=== PATIENT | female | born 1950 | race Caucasian/White ===

== ENCOUNTER 2016-08-25 10:38 | Emergency (ER) | payer MEDICARE, BC ==
[~2016-08-25] VITALS: Ht 152.4 cm; Wt 45.5 kg
[~2016-08-25 10:38] MED LIST: DIAZ10TA PO; FLUO20CA4 PO; LEVO88TA2 PO; OMEP20TA PO; SIMV20TA PO
[2016-08-25 10:40] VITALS: BP 132/66; PULSE 98; RESP 20; TEMP 99; O2SAT 97
[2016-08-25] MEDS ORDERED: SODIUM CHLOR 0.9% 1000 ML INJ 1,000 ML IV SCH (11:26)
[2016-08-25] MEDS ORDERED: LORazepam 2 MG/ML VIAL IV PUSH ONE (11:30)
--- NOTE | 2016-08-25 11:40 | PD ---
HPI Chief Complaint: General Weakness Time Seen by Provider: 11:34 Travel History International Travel<30 days: No Contact w/Intl Traveler<30days: No Traveled to known affect area: No History of Present Illness HPI 65-year-old female that presents to the ED for evaluation of multiple complaints. Patient apparently main complaint is that she had her medication changed recently by a new doctor from to Prozac and she states that she doesn't like this medication as it seems like is not working for her. Per patient she also had her medication changed from Valium to Xanax and she also states that this is not working for her. She attributes most of her symptoms to this and she appears to be more anxious and depressed. Per patient she cannot get out of the house because she doesn't have the strength to get out. Per patient feels very weak and anxious. She states that she's been having some chest pain and epigastric pain. She is also stating that she has body aches and feels like she might have pneumonia. She also would like us to do an ultrasound of her ovarian cyst as she missed her last appointment to get this done. She denies any symptoms from the ovarian cyst. Is any vaginal bleeding or discharge. Per patient she is urinating a lot. She does have a known history of thyroid disease and last time she was here in March she was found to be in severe hypothyroidism. Patient was admitted for that. She states that her pain is 8 out of 10 mg epigastric area. Per patient the pain in the abdomen moves to the back. She denies any falls or injuries. No fevers chills or sweats. The patient gets tremors whenever she gets anxious and she had one of this tremors when I was in the room. She was completely awake and answering questions of properly during the whole time. PFSH Past Medical History Anxiety: Yes Depression: Yes Cancer: No Cardiovascular Problems: No High Cholesterol: Yes COPD: Yes Gastrointestinal Disorders: Yes GERD: Yes (GERD) Genitourinary: No Musculoskeletal: No Neurologic: No Psychiatric: Yes (anger, anxiaty ) Reproductive: No Respiratory: Yes Thyroid Disease: Yes (hyperthyroidism) Past Surgical History Abdominal Surgery: Yes (GALL BLADDER) Other Surgery: Yes Social History Alcohol Use: No Tobacco Use: No (2 cigeretts a day ) Substance Use: No Allergies-Medications (Allergen,Severity, Reaction): Coded Allergies: Codeine (Verified Allergy, Severe, 08/25/16) Penicillin (Verified Allergy, Severe, 08/25/16) Reported Meds & Prescriptions Reported Meds & Active Scripts Active Buspirone (Buspirone HCl) 15 Mg Tab 15 Mg PO BID 30 Days Diazepam 10 Mg Tab 10 Mg PO BID 30 Days Levothyroxine (Levothyroxine Sodium) 88 Mcg Tab 88 Mcg PO DAILY Reported Fluoxetine (Fluoxetine HCl) 20 Mg Cap 20 Mg PO DAILY Simvastatin 20 Mg Tab 20 Mg PO DAILY Omeprazole 20 Mg Tab 20 Mg PO BID Review of Systems Except as stated in HPI: all other systems reviewed are Neg Physical Exam Narrative GENERAL: SKIN: Warm and dry. HEAD: Atraumatic. Normocephalic. EYES: Pupils equal and round 4 mm reactive to light and accommodation. No scleral icterus. No injection or drainage. ENT: No nasal bleeding or discharge. Mucous membranes pink and moist. Tongue is midline. No uvula deviation. NECK: Trachea midline. No JVD. CARDIOVASCULAR: Regular rate and rhythm. No murmurs, S3, S4. RESPIRATORY: No accessory muscle use. Clear to auscultation. Breath sounds equal bilaterally. GASTROINTESTINAL: Abdomen soft, non-tender, nondistended. Hepatic and splenic margins not palpable. MUSCULOSKELETAL: Extremities without clubbing, cyanosis, or edema. No obvious deformities. Full range of motion of the upper and lower extremities bilaterally. 2+ pulses bilaterally. No cervical, thoracic, lumbar spine tenderness to palpation. NEUROLOGICAL: Awake and alert. No obvious cranial nerve deficits. Motor grossly within normal limits. Five out of 5 muscle strength in the arms and legs. Normal speech. PSYCHIATRIC: Anxious mood and affect; insight and judgment normal. Data Data Last Documented VS Vital Signs Date Time Temp Pulse Resp B/P Pulse Ox O2 Delivery O2 Flow Rate FiO2 08/25/16 11:51 74 14 134/76 97 08/25/16 10:56 Room Air 08/25/16 10:40 99.0 Orders Electrocardiogram (08/25/16 ) Complete Blood Count With Diff (08/25/16 11:24) Comprehensive Metabolic Panel (08/25/16 11:24) Creatine Kinase (Cpk) (08/25/16 11:24) Ckmb (Isoenzyme) Profile (08/25/16 11:24) Troponin I (08/25/16 11:24) Prothrombin Time / Inr (Pt) (08/25/16 11:24) Act Partial Throm Time (Ptt) (08/25/16 11:24) Blood Culture (08/25/16 11:24) Lipase (08/25/16 11:24) Urinalysis - C+S If Indicated (08/25/16 11:24) Magnesium (Mg) (08/25/16 11:24) Thyroid Stimulating Hormone (08/25/16 11:24) Chest, Single Ap (08/25/16 11:24) Ct Abd/Pel W Iv Contrast(Rout) (08/25/16 11:24) Iv Access Insert/Monitor (08/25/16 11:24) Ecg Monitoring (08/25/16 11:24) Oximetry (08/25/16 11:24) Lorazepam Inj (Ativan Inj) (08/25/16 11:30) Lactic Acid (08/25/16 11:24) Free T3 (08/25/16 11:24) Thyroxine (T4) (08/25/16 11:24) Sodium Chlor 0.9% 1000 Ml Inj (Ns 1000 M (08/25/16 11:26) Free Thyroxine (T4) (08/25/16 11:28) Potassium Chloride (Kcl) (08/25/16 13:00) Iohexol 350 Inj (Omnipaque 350 Inj) (08/25/16 13:23) Labs Laboratory Tests Test 08/25/16 11:30 White Blood Count 6.4 TH/MM3 Red Blood Count 5.32 MIL/MM3 Hemoglobin 14.6 GM/DL Hematocrit 44.0 % Mean Corpuscular Volume 82.7 FL Mean Corpuscular Hemoglobin 27.5 PG Mean Corpuscular Hemoglobin 33.2 % Concent Red Cell Distribution Width 14.1 % Platelet Count 178 TH/MM3 Mean Platelet Volume 8.7 FL Neutrophils (%) (Auto) 65.0 % Lymphocytes (%) (Auto) 26.4 % Monocytes (%) (Auto) 7.7 % Eosinophils (%) (Auto) 0.7 % Basophils (%) (Auto) 0.2 % Neutrophils # (Auto) 4.1 TH/MM3 Lymphocytes # (Auto) 1.7 TH/MM3 Monocytes # (Auto) 0.5 TH/MM3 Eosinophils # (Auto) 0.0 TH/MM3 Basophils # (Auto) 0.0 TH/MM3 CBC Comment DIFF FINAL Differential Comment Urine Color LIGHT-YELLOW Urine Turbidity CLEAR Urine pH 6.5 Urine Specific [place] 1.011 Urine Protein NEG mg/dL Urine Glucose (UA) NEG mg/dL Urine Ketones NEG mg/dL Urine Occult Blood NEG Urine Nitrite NEG Urine Bilirubin NEG Urine Urobilinogen LESS THAN 2.0 MG/DL Urine Leukocyte Esterase NEG Urine WBC LESS THAN 1 /hpf Urine Squamous Epithelial <1 /hpf Cells Microscopic Urinalysis Comment CULT NOT INDICATED Sodium Level 140 MEQ/L Potassium Level 3.2 MEQ/L Chloride Level 105 MEQ/L Carbon Dioxide Level 25.1 MEQ/L Anion Gap 10 MEQ/L Blood Urea Nitrogen 18 MG/DL Creatinine 0.67 MG/DL Estimat Glomerular Filtration 88 ML/MIN Rate Random Glucose 114 MG/DL Lactic Acid Level 1.8 mmol/L Calcium Level 9.4 MG/DL Magnesium Level 2.1 MG/DL Total Bilirubin 0.4 MG/DL Aspartate Amino Transf 16 U/L (AST/SGOT) Alanine Aminotransferase 34 U/L (ALT/SGPT) Alkaline Phosphatase 84 U/L Total Creatine Kinase 27 U/L Troponin I LESS THAN 0.02 NG/ML Total Protein 6.9 GM/DL Albumin 3.8 GM/DL Lipase 183 U/L Free Thyroxine 1.07 NG/DL Thyroxine (T4) 10.4 MCG/DL Free Triiodothyronine (T3) 1.96 PG/ML pg/dL Thyroid Stimulating Hormone 0.219 uIU/ML 3rd Gen [facility] Medical Decision Making Medical Screen Exam Complete: Yes Emergency Medical Condition: Yes Medical Record Reviewed: Yes Interpretation(s) CBC & BMP Diagram 08/25/16 11:30 LFTS WNL lipase WNL TSH low free t4, t4, free t3 WNL Last Impressions Chest X-Ray 08/25/16 1124 Signed Impressions: Service Date/Time: Thursday, August 25, 2016 11:28 - CONCLUSION: Minimal density right current phrenic angle could be atelectasis, minimal infiltrate or prominent cardiac fat-pad. Rc Love MD Abdomen/Pelvis CT 08/25/16 1124 Signed Impressions: Service Date/Time: Thursday, August 25, 2016 13:14 - CONCLUSION: 1. No acute inflammatory process. 2. Status post cholecystectomy. 3. Small hiatal hernia. 4. Left ovarian cyst measures 2.6 cm. Followup pelvic sonogram in 6 weeks. 5. Bilateral subcentimeter renal densities likely cysts. Rc Love MD EKG shows sinus rhythm with no sign of acute ischemia or arrythmia. Read by me and attending. troponin and CKMB negative Differential Diagnosis Anxiety versus thyroid disease versus tremors versus generalized weakness versus severe depression versus medication side effect versus ACS versus chest pain versus pancreatitis Narrative Course 65-year-old female that presents to the ED for evaluation of multiple complaints. Patient was properly examined and was found to have signs and symptoms of unclear etiology. She does have multiple complaints and is in a hard to proceed which Sunday main complaint. From what I can tell and most of this appears to be with a recent change in medication from does appear to Prozac as well as from Valium to Xanax which she does not like. Per patient this happened because she went to a different doctor to get a refill she cannot get to see her doctor and she was essentially discharged from the practice of her old doctor. She does have a history of significant thyroid disease do recommend workup. Labs and imaging will be ordered as patient does complain of some abdominal discomfort especially in the epigastric area as well as cough. Labs and imaging here showed no sign of acute disease. I spoke with my attending Dr. Hernandes who went in and evaluated the patient and agrees with plan. Patient will be discharged home with prescriptions for BuSpar and Valium. Told to follow up closely with new doctor. See ED for worsening symptoms. Patient was given information for PCP in the area. Diagnosis Primary Impression: Anxiety Additional Impression: Medication side effect Qualified Code: T88.7XXA - Medication side effect, initial encounter Referrals: Maura Infante MD Patient Instructions: General Instructions Additional Instructions: Stop the Zoloft and take Buspar. Do not take the Xanax with the Valium. Follow up with new doctor. See ED if worsening symptoms. Follow up with PCP. Symptoms will likely take some time to get better and will likely take a couple weeks before you feel back to somewhat normal. Med/Other Pt SpecificInfo: Prescription(s) given Scripts Buspirone 15 Mg Tab15 Mg PO BID 30 Days Ref 0 Prov:Santosh Tan MD 08/25/16 Diazepam 10 Mg Tab10 Mg PO BID 30 Days Ref 0 Prov:Santosh Tan MD 08/25/16 Disposition: 01 DISCHARGE HOME Condition: Christopher Busch August 25, 2016 11:40
--- NOTE | 2016-08-25 11:42 | RADRPT ---
EXAM DATE/TIME: 08/25/2016 11:28 [facility] COMPARISON: CHEST SINGLE AP, March 28, 2016, 16:18. INDICATIONS : Chest pain, shortness of breath. MEDICAL HISTORY : Gastroesophageal reflux disease. Hypothyroidism. Chronic obstructive pulmonary disease. Smoker. SURGICAL HISTORY : None. ENCOUNTER: Initial ACUITY: 1 day PAIN SCORE: 0/10 LOCATION: Bilateral chest FINDINGS: A single view of the chest demonstrates minimal right cardiophrenic angle density. Left lung is clear . Heart normal in size. Osseous structures are intact. CONCLUSION: Minimal density right current phrenic angle could be atelectasis, minimal infiltrate or prominent car diac fat-pad. Rc Love MD on August 25, 2016 at 11:39 Board Certified Radiologist. This report was verified electronically.
[2016-08-25 11:51] VITALS: BP 134/76; PULSE 74; RESP 14; O2SAT 97
[2016-08-25 12:18] LABS: AUTOMATED NEUTROPHIL # 4.1 TH/MM3 (1.8-7.7); BASOPHIL % 0.2 % (0.0-2.0); EOSINOPHIL % 0.7 % (0.0-4.0); HEMO FLAGS DIFF FINAL; LYMPH % 26.4 % (9.0-44.0); LYMPHOCYTE # 1.7 TH/MM3 (1.0-4.8); MEAN CELL VOLUME 82.7 FL (80.0-100.0); MEAN CORPUSCULAR HEMOGLOBIN 27.5 PG (27.0-34.0); MEAN CORPUSCULAR HGB CONC 33.2 % (32.0-36.0); MONO % 7.7 % (0.0-8.0); PLATELET COUNT 178 TH/MM3 (150-450); RED BLOOD COUNT 5.32 MIL/MM3 (4.00-5.30); RED CELL DISTRIBUTION WIDTH 14.1 % (11.6-17.2); WHITE BLOOD COUNT 6.4 TH/MM3 (4.0-11.0)
[2016-08-25 12:26] LABS: BLOOD, URINE NEG (NEG); GLUCOSE,URINE NEG (NEG); KETONE, URINE NEG (NEG); NITRITE,URINE NEG (NEG); PH, URINE 6.5 (5.0-8.5); SQUAMOUS EPITHELIAL CELL URINE <1 /hpf (0-5); URINE COLOR LIGHT-YELLOW (YELLW/STRAW)
[2016-08-25 12:30] LABS: COMMENT (UR) CULT NOT INDICATED; CULTURE IF INDICATED CULT NOT INDICATED
[2016-08-25 12:34] LABS: ANION GAP 10 MEQ/L (5-15); AST (GOT) 16 U/L (15-37); BICARBONATE 25.1 MEQ/L (21.0-32.0); BLOOD UREA NITROGEN 18 MG/DL (7-18); CHLORIDE 105 MEQ/L (98-107); GLOMERULAR FILTRATION RATE 88 ML/MIN (>89); MAGNESIUM 2.1 MG/DL (1.5-2.5); POTASSIUM 3.2 MEQ/L (3.5-5.1); SODIUM (NA) 140 MEQ/L (136-145)
[2016-08-25 12:44] LABS: ALKALINE PHOSPHATASE 84 U/L (45-117); ALT (GPT) 34 U/L (10-53); FREE T3 1.96 PG/ML (2.18-3.98); THYROXINE (T4) 10.4 MCG/DL (4.8-13.9); TOTAL BILIRUBIN ADULT 0.4 MG/DL (0.2-1.0)
[2016-08-25 12:46] LABS: CREATINE KINASE 27 U/L (26-192)
[2016-08-25] MEDS ORDERED: POTASSIUM CHLORIDE 20 MEQ CONTROLLED RELEASE TAB PO ONE (13:00)
[2016-08-25] MEDS ORDERED: IOHEXOL 350 MG/ML 10 ML VIAL (for RAD DIAG) IV ONE (13:23)
--- NOTE | 2016-08-25 13:42 | RADRPT ---
EXAM DATE/TIME: 08/25/2016 13:14 [facility] COMPARISON: No previous studies available for comparison. INDICATIONS : Epigastric pain. IV CONTRAST: 84 cc Omnipaque 350 (iohexol) IV ORAL CONTRAST: No oral contrast ingested. RADIATION DOSE: 4.49 CTDIvol (mGy) MEDICAL HISTORY : Gastroesophageal reflux disease. Chronic obstructive pulmonary disease. SURGICAL HISTORY : Cholecystectomy. ENCOUNTER: Initial ACUITY: 1 week PAIN SCALE: 4/10 LOCATION: Bilateral upper quadrant TECHNIQUE: Volumetric scanning of the abdomen and pelvis was performed. Using automated exposure control and ad justment of the mA and/or kV according to patient size, radiation dose was kept as low as reasonably achievable to obtain optimal diagnostic quality images. FINDINGS: LOWER LUNGS: Nodular scarring right lower lobe LIVER: Homogeneous density without lesion. There is no dilation of the biliary tree. Cholecystectomy clips. SPLEEN: Normal size without lesion. PANCREAS: Within normal limits. KIDNEYS: Normal in size and shape. There is no mass, stone or hydronephrosis. Subcentimeter low densities. ADRENAL GLANDS: Within normal limits. VASCULAR: There is no aortic aneurysm. BOWEL/MESENTERY: The stomach, small bowel, and colon demonstrate no acute abnormality. There is no free intraperitone al air or fluid. Small hiatal hernia. ABDOMINAL WALL: Within normal limits. RETROPERITONEUM: There is no lymphadenopathy. BLADDER: No wall thickening or mass. REPRODUCTIVE: Left ovarian cyst measures 2.6 cm.. INGUINAL: There is no lymphadenopathy or hernia. MUSCULOSKELETAL: Within normal limits for patient age. CONCLUSION: 1. No acute inflammatory process. 2. Status post cholecystectomy. 3. Small hiatal hernia. 4. Left ovarian cyst measures 2.6 cm. Followup pelvic sonogram in 6 weeks. 5. Bilateral subcentimeter renal densities likely cysts. Rc Love MD on August 25, 2016 at 13:37 Board Certified Radiologist. This report was verified electronically.
[2016-08-25] MEDS ORDERED: DIAZ10TA PO (14:12)
[2016-08-25] MEDS ORDERED: BUSP15TA PO (14:12)
[2016-08-25 14:19] VITALS: BP 131/68
--- NOTE | 2016-08-26 16:37 | EKG ---
Date Performed: 08/25/2016 Time Performed: 10:55:47 PTAGE: 65 years EKG: Sinus rhythm BORDERLINE LEFT AXIS DEVIATION POOR R-WAVE PROGRESSION-WHICH MAY BE IN NORMAL VARIANT Compared to pr ior tracing no significant change BORDERLINE ECG PREVIOUS TRACING : 03/28/2016 20.42 DOCTOR: Homero Barry Interpretating Date/Time 08/26/2016 16:36:35
--- NOTE | 2016-08-26 16:40 | EKG ---
Date Performed: 08/25/2016 Time Performed: 13:35:30 PTAGE: 65 years EKG: Sinus rhythm WITH SINUS ARRHYTHMIA POOR -WAVE PROGRESSION WHICH MAYBE IN NORMAL VARIANT. SINCE PREVIOUS TRACING-S INUS ARRHYTHMIA IS NEW, OTHERWISE NO SIGNIFICANT CHANGE. NORMAL ECG PREVIOUS TRACING : 08/25/2016 10.55 DOCTOR: Homero Barry Interpretating Date/Time 08/26/2016 16:39:56
== END 2016-08-25 15:05 | disposition home or self-care (01) ==
LOC: NEPE 10:38
DX: F41.9 Anxiety disorder, unspecified (principal); T88.7XXA Unspecified adverse effect of drug or medicament, initial encounter; R07.9 Chest pain, unspecified; R10.13 Epigastric pain; I49.8 Other specified cardiac arrhythmias
CPT/HCPCS: 71010; 74177; 80053; 81001; 82550; 83605; 83690; 83735; 84439; 84443; 84481; 84484; 85025; 87040; 93005; 96361; 96374; 99285; J2060; J7030; Q9967; 84436

== ENCOUNTER 2017-02-12 12:09 | Emergency (ER) | payer MEDICARE, BC ==
[~2017-02-12] VITALS: Ht 152.4 cm; Wt 51.0 kg
[~2017-02-12 12:09] MED LIST changes: +BUSP15TA PO; -OMEP20TA PO; +OMEP20TA93 PO
[2017-02-12 12:27] VITALS: BP_SYST 150; BP_SYST 159; BP_DIAS 77; BP_DIAS 87; PULSE 86; RESP 17; TEMP 98.7; O2SAT 97
[2017-02-12] MEDS ORDERED: ZOCO20TA PO (12:36)
[2017-02-12 12:53] LABS: AUTOMATED NEUTROPHIL # 3.8 TH/MM3 (1.8-7.7); BASOPHIL % 0.7 % (0.0-2.0); EOSINOPHIL # 0.1 TH/MM3 (0-0.4); EOSINOPHIL % 0.9 % (0.0-4.0); HEMATOCRIT 47.2 % (35.0-46.0); HEMO FLAGS DIFF FINAL; LYMPH % 31.4 % (9.0-44.0); MEAN CELL VOLUME 83.5 FL (80.0-100.0); MEAN CORPUSCULAR HEMOGLOBIN 27.3 PG (27.0-34.0); MEAN CORPUSCULAR HGB CONC 32.7 % (32.0-36.0); PLATELET COUNT 196 TH/MM3 (150-450); RED BLOOD COUNT 5.66 MIL/MM3 (4.00-5.30); RED CELL DISTRIBUTION WIDTH 12.8 % (11.6-17.2); WHITE BLOOD COUNT 6.3 TH/MM3 (4.0-11.0)
[2017-02-12 12:54] LABS: BLOOD, URINE SMALL (NEG); GLUCOSE,URINE NEG (NEG); KETONE, URINE TRACE mg/dL (NEG); NITRITE,URINE NEG (NEG); PH, URINE 5.5 (5.0-8.5)
[2017-02-12] MEDS ORDERED: ALPR.5 PO (12:56)
[2017-02-12] MEDS ORDERED: TEMA15CA PO (12:56)
[2017-02-12 13:01] LABS: METHOD OF COLLECTION VOIDED; URINE COLOR STRAW (YELLW/STRAW)
[2017-02-12 13:02] LABS: COMMENT (UR) CULT NOT INDICATED; CULTURE IF INDICATED CULT NOT INDICATED; WBC, URINE 0-2 /hpf (0-5)
[2017-02-12 13:03] LABS: SQUAMOUS EPITHELIAL CELL URINE 0-1 /hpf (0-5)
--- NOTE | 2017-02-12 13:07 | RADRPT ---
EXAM DATE/TIME: 02/12/2017 12:54 [facility] COMPARISON: CHEST SINGLE AP, August 25, 2016, 11:28. INDICATIONS : Short of breath, cough. MEDICAL HISTORY : Chronic obstructive pulmonary disease. Hypothyroidism. Gastroesophageal reflux disease. SURGICAL HISTORY : None. ENCOUNTER: Initial ACUITY: 4 - 6 days PAIN SCORE: 0/10 LOCATION: Bilateral chest FINDINGS: A single view of the chest demonstrates the lungs to be symmetrically aerated without evidence of mas s, infiltrate or effusion. The cardiomediastinal contours are unremarkable. Osseous structures are intact. CONCLUSION: No acute disease. Ashkan Carr Jr., MD on February 12, 2017 at 13:05 Board Certified Radiologist. This report was verified electronically.
[2017-02-12 13:19] LABS: CHLORIDE 105 MEQ/L (98-107); POTASSIUM 3.2 MEQ/L (3.5-5.1); SODIUM (NA) 139 MEQ/L (136-145)
[2017-02-12 13:22] LABS: ANION GAP 9 MEQ/L (5-15); BICARBONATE 24.6 MEQ/L (21.0-32.0); BLOOD UREA NITROGEN 16 MG/DL (7-18)
[2017-02-12 13:25] LABS: ALT (GPT) 36 U/L (10-53); AST (GOT) 22 U/L (15-37); GLOMERULAR FILTRATION RATE 77 ML/MIN (>89)
[2017-02-12 13:27] LABS: TOTAL BILIRUBIN ADULT 0.6 MG/DL (0.2-1.0)
[2017-02-12 13:28] LABS: ALKALINE PHOSPHATASE 77 U/L (45-117)
[2017-02-12] MEDS ORDERED: POTASSIUM CHLORIDE 20 MEQ CONTROLLED RELEASE TAB PO ONE (13:30)
[2017-02-12 13:49] VITALS: BP 134/72; PULSE 91; RESP 18; O2SAT 96
--- NOTE | 2017-02-12 14:05 | PD ---
HPI Chief Complaint: Chest Pain Time Seen by Provider: 12:18 Travel History International Travel<30 days: No Contact w/Intl Traveler<30days: No Traveled to known affect area: No History of Present Illness HPI This 66-year-old female is complaining that she feels like she has chest infection. She has had bronchitis and pneumonia in the past she feels like she has the same problem. She is not actually coughing but she says she gets burning in her chest at times. She does have a history of COPD. She still smokes cigarettes though she is cutting back. She has not been feeling well in general for several months. She has a history of hyperthyroidism. She was on methimazole and was given radioactive iodine and most recently has been on thyroid replacement. Suddenly her computer systems design analyst to her off all thyroid medication. She has a history of reflux and has been on sucralfate in and Prilosec in the past. She has stopped taking them but has developed some recurrent symptoms of epigastric burning. She says she has no energy and feels like she is tired all the time PFS Past Medical History Anxiety: Yes Depression: Yes Cancer: No Cardiovascular Problems: No High Cholesterol: Yes COPD: Yes Diminished Hearing: No Gastrointestinal Disorders: Yes GERD: Yes (GERD) Genitourinary: No Musculoskeletal: No Neurologic: No Psychiatric: Yes (anger, anxiaty ) Reproductive: No Respiratory: Yes Thyroid Disease: Yes (hyperthyroidism) Tetanus Vaccination: > 5 Years Influenza Vaccination: No Past Surgical History Surgical History: No Previous Surgery Abdominal Surgery: Yes (GALL BLADDER) Other Surgery: Yes Social History Alcohol Use: No Tobacco Use: No (2 cigeretts a day ) Substance Use: No Allergies-Medications (Allergen,Severity, Reaction): Coded Allergies: codeine (Verified Allergy, Severe, 02/12/17) penicillin G (Verified Allergy, Severe, 02/12/17) aspirin (Verified Allergy, Unknown, 02/12/17) caffeine (Verified Allergy, Unknown, 02/12/17) pantoprazole (Verified Allergy, Unknown, 02/12/17) paroxetine (Verified Allergy, Unknown, 02/12/17) trazodone (Verified Allergy, Unknown, 02/12/17) Reported Meds & Prescriptions Reported Meds & Active Scripts Active Buspirone (Buspirone HCl) 15 Mg Tab 15 Mg PO BID 30 Days Diazepam 10 Mg Tab 10 Mg PO BID 30 Days Reported Temazepam 15 Mg Cap 15 Mg PO HS PRN Xanax (Alprazolam) 0.5 Mg Tab 0.5 Mg PO DIRECTED PRN Zocor (Simvastatin) 20 Mg Tab 20 Mg PO DAILY Omeprazole 20 Mg Tab 20 Mg PO BID Review of Systems General / Constitutional: No: Fever, Chills Eyes: No: Diploplia, Blurred Vision HENT: No: Headaches, Vertigo Cardiovascular: Positive: Chest Pain or Discomfort, No: Palpitations Respiratory: No: Cough, Shortness of Breath Gastrointestinal: No: Nausea, Vomiting Genitourinary: Positive: Frequency, No: Urgency Musculoskeletal: No: Myalgias, Arthralgias Skin: No Rash Neurologic: Positive: Weakness, No: Dizziness Physical Exam Narrative GENERAL: Well-developed female SKIN: Focused skin assessment warm/dry. HEAD: Atraumatic. Normocephalic. EYES: Pupils equal and round. No scleral icterus. No injection or drainage. ENT: No nasal bleeding or discharge. Mucous membranes pink and moist. NECK: Trachea midline. No JVD. CARDIOVASCULAR: Regular rate and rhythm. No murmur appreciated. RESPIRATORY: No accessory muscle use. Her bilateral rhonchi. Breath sounds equal bilaterally. GASTROINTESTINAL: Abdomen soft, non-tender, nondistended. Hepatic and splenic margins not palpable. MUSCULOSKELETAL: No obvious deformities. No clubbing. No cyanosis. No edema. NEUROLOGICAL: Awake and alert. No obvious cranial nerve deficits. Motor grossly within normal limits. Normal speech. PSYCHIATRIC: Appropriate mood and affect; insight and judgment normal. Data Data Last Documented VS Vital Signs Date Time Temp Pulse Resp B/P (MAP) Pulse Ox O2 Delivery O2 Flow Rate FiO2 02/12/17 13:49 91 18 134/72 (92) 96 Room Air 02/12/17 12:27 98.7 Orders Orders Complete Blood Count With Diff (02/12/17 12:27) Comprehensive Metabolic Panel (02/12/17 12:27) Troponin I (02/12/17 12:27) Urinalysis - C+S If Indicated (02/12/17 12:27) Thyroid Stimulating Hormone (02/12/17 12:27) Chest, Single Ap (02/12/17 12:27) Potassium Chloride (Kcl) (02/12/17 13:30) Labs Laboratory Tests Test 02/12/17 12:45 White Blood Count 6.3 TH/MM3 Red Blood Count 5.66 MIL/MM3 Hemoglobin 15.4 GM/DL Hematocrit 47.2 % Mean Corpuscular Volume 83.5 FL Mean Corpuscular Hemoglobin 27.3 PG Mean Corpuscular Hemoglobin Concent 32.7 % Red Cell Distribution Width 12.8 % Platelet Count 196 TH/MM3 Mean Platelet Volume 8.0 FL Neutrophils (%) (Auto) 60.0 % Lymphocytes (%) (Auto) 31.4 % Monocytes (%) (Auto) 7.0 % Eosinophils (%) (Auto) 0.9 % Basophils (%) (Auto) 0.7 % Neutrophils # (Auto) 3.8 TH/MM3 Lymphocytes # (Auto) 2.0 TH/MM3 Monocytes # (Auto) 0.4 TH/MM3 Eosinophils # (Auto) 0.1 TH/MM3 Basophils # (Auto) 0.0 TH/MM3 CBC Comment DIFF FINAL Differential Comment Urine Collection Type VOIDED Urine Color STRAW Urine Turbidity CLEAR Urine pH 5.5 Urine Specific [place] 1.007 Urine Protein NEG mg/dL Urine Glucose (UA) NEG mg/dL Urine Ketones TRACE mg/dL Urine Occult Blood SMALL Urine Nitrite NEG Urine Bilirubin NEG Urine Leukocyte Esterase NEG Urine WBC 0-2 /hpf Urine Squamous Epithelial Cells 0-1 /hpf Microscopic Urinalysis Comment CULT NOT INDICATED Blood Urea Nitrogen 16 MG/DL Creatinine 0.75 MG/DL Random Glucose 92 MG/DL Total Protein 7.5 GM/DL Albumin 4.4 GM/DL Calcium Level 8.7 MG/DL Alkaline Phosphatase 77 U/L Aspartate Amino Transf (AST/SGOT) 22 U/L Alanine Aminotransferase (ALT/SGPT) 36 U/L Total Bilirubin 0.6 MG/DL Sodium Level 139 MEQ/L Potassium Level 3.2 MEQ/L Chloride Level 105 MEQ/L Carbon Dioxide Level 24.6 MEQ/L Anion Gap 9 MEQ/L Estimat Glomerular Filtration Rate 77 ML/MIN Troponin I LESS THAN 0.02 NG/ML Thyroid Stimulating Hormone 3rd Gen 6.180 uIU/ML [facility] Medical Decision Making Medical Screen Exam Complete: Yes Emergency Medical Condition: Yes Medical Record Reviewed: Yes Differential Diagnosis Differential includes pneumonia, bronchitis, COPD exacerbation, hypothyroidism Narrative Course Patient's TSH is elevated. She sees an computer systems design analyst and I recommended she follow up with him. Chest x-rays read as negative white count is normal. She does have a history of COPD and feels like she has infection. She'll be placed on Zithromax Diagnosis Primary Impression: Bronchitis Scripts Azithromycin (Zithromax Z-Levy) 250 Mg Dspk 250 MG PO DIRECTED for Infection, #1 DSPK 0 Refills 500 MG (2 tabs) day 1, then 1 tab days 2-5. Prov: Ivan Noyola MD 02/12/17 Disposition: 01 DISCHARGE HOME Condition: Stable Ivan Noyola MD Feb 12, 2017 14:05
[2017-02-12] MEDS ORDERED: ZITHTAB PO (14:07)
--- NOTE | 2017-02-13 14:31 | EKG ---
Date Performed: 02/12/2017 Time Performed: 12:20:10 PTAGE: 66 years EKG: Sinus rhythm NONSPECIFIC T-WAVE ABNORMALITY BORDERLINE ECG PREVIOUS TRACING : 08/25/2016 13.35 Compared to prior tracing no significant change DOCTOR: Gabo Rashid Interpretating Date/Time 02/13/2017 14:24:25
== END 2017-02-12 14:19 | disposition home or self-care (01) ==
LOC: PHED 12:09
DX: J40 Bronchitis, not specified as acute or chronic (principal); R94.31 Abnormal electrocardiogram [ECG] [EKG]; E05.90 Thyrotoxicosis, unspecified without thyrotoxic crisis or storm; E78.00 Pure hypercholesterolemia, unspecified; J44.9 Chronic obstructive pulmonary disease, unspecified; K21.9 Gastro-esophageal reflux disease without esophagitis; Z88.0 Allergy status to penicillin; Z72.0 Tobacco use
CPT/HCPCS: 71010; 80053; 81001; 84443; 84484; 85025; 93005; 99284

== ENCOUNTER 2017-04-12 13:32 | Emergency (ER) | payer MEDICARE, BC | END 2017-04-12 15:12 | disposition left against medical advice (07) | LOC: NEPD 13:32 | DX: F41.8 Other specified anxiety disorders (principal); J44.9 Chronic obstructive pulmonary disease, unspecified; E78.00 Pure hypercholesterolemia, unspecified; K21.9 Gastro-esophageal reflux disease without esophagitis; E05.90 Thyrotoxicosis, unspecified without thyrotoxic crisis or storm; Z88.5 Allergy status to narcotic agent; Z88.0 Allergy status to penicillin; Z53.21 Procedure and treatment not carried out due to patient leaving prior to being seen by health care provider | CPT/HCPCS: 99281 ==